=== PATIENT | male | born 1945 | race Caucasian/White ===

== ENCOUNTER 2021-02-10 22:48 | Emergency (ER) | payer OTHER ==
[~2021-02-10] VITALS: Ht 177.8 cm; Wt 104.3 kg
[2021-02-10] MEDS ORDERED: MECLIZINE HCL 25 MG TABLET PO ONE (23:15)
[2021-02-10] MEDS ORDERED: MECLIZINE HCL 25 MG TABLET ONE (23:36)
[2021-02-11 00:11] LABS: BASOPHILS # (AUTO) 0.1 K/uL (0.0-8.0); BASOPHILS % (AUTO) 0.5 % (0.0-2.0); EOSINOPHILS # (AUTO) 0.1 K/uL (0.0-0.7); EOSINOPHILS % (AUTO) 0.8 % (0.0-7.0); HEMATOCRIT 37.2 % (36.7-47.1); HEMOGLOBIN 12.8 g/dL (12.5-16.3); LYMPHOCYTES # (AUTO) 1.9 K/uL (20.0-40.0); LYMPHOCYTES % (AUTO) 14.2 % (20.5-51.5); MEAN CORPUSCULAR HEMOGLOBIN 30.3 uug (23.8-33.4); MEAN CORPUSCULAR HGB CONC 35 g/dL (32.5-36.3); MEAN CORPUSCULAR VOLUME 87.9 fL (73.0-96.2); MONOCYTES # (AUTO) 1.2 K/uL (2.0-10.0); MONOCYTES % (AUTO) 8.7 % (0.0-11.0); NEUTROPHILS # (AUTO) 10.2 K/uL (1.8-8.9); NEUTROPHILS % (AUTO) 75.8 % (38.5-71.5); PLATELET COUNT (AUTO) 217 K/uL (152-348); RED BLOOD CELL COUNT(AUTO) 4.23 MIL/uL (4.06-5.63); WHITE BLOOD COUNT (AUTO) 13.5 K/uL (3.6-10.2)
[2021-02-11 00:18] LABS: CREATININE 1.2 mg/dL (0.6-1.3); POTASSIUM 4.6 mmol/L (3.5-5.1)
[2021-02-11 00:24] LABS: BILIRUBIN,DIRECT 0.1 mg/dL (0.0-0.2); BILIRUBIN,TOTAL 0.7 mg/dL (0.2-1.0); TOTAL PROTEIN, SERUM 6.7 g/dL (6.4-8.2)
[2021-02-11 00:41] LABS: *BILIRUBIN,URIN 1+ (NEGATIVE); *BLOOD, URINE NEGATIVE (NEGATIVE); *CLARITY,URINE CLEAR (CLEAR); *COLOR,URINE YELLOW (YELLOW); *KETONES,URINE 1+ (NEGATIVE); LEUKOCYTE ESTERASE ,URINE NEGATIVE (NEGATIVE); NITRITE, URINE NEGATIVE (NEGATIVE); UGLUCOSE NEGATIVE (NEGATIVE)
--- NOTE | 2021-02-11 00:48 | NUR ---
Spoke with Nazario from [facility], awaiting call back.
--- NOTE | 2021-02-11 00:53 | NUR ---
Dr. Mclain ([place]) called back, speaking with Dr. Teran.
[2021-02-11 00:55] LABS: BACTERIA,URINE NONE SEEN /HPF (NONE SEEN); RBC,URINE 0-3 /HPF (0-3); SQUAMOUS EPITHELIAL CELL,UR NONE SEEN /HPF (NONE SEEN); WBC,URINE 0-3 /HPF (0-3)
--- NOTE | 2021-02-11 01:34 | NUR ---
Toby from [facility] called back with transfer info. Patient will be going to [facility]. Accepting MD is Dr Coulter. Call for report is . [facility] ALS ETA is [phone].
--- NOTE | 2021-02-11 01:54 | NUR ---
Report called to VINICIO Young at [facility].
--- NOTE | 2021-02-11 02:55 | NUR ---
[facility] unit # [id number] for patient pick up attendant. Patient is awake, alert/oriented, in no acute distress.
== END 2021-02-11 02:59 | disposition short-term general hospital (02) ==
LOC: ER 22:50
DX: R55 Syncope and collapse (principal); Z20.822 Contact with and (suspected) exposure to COVID-19; E78.5 Hyperlipidemia, unspecified; E11.9 Type 2 diabetes mellitus without complications; R00.1 Bradycardia, unspecified; I44.4 Left anterior fascicular block
CPT/HCPCS: 36415; 70030-TC; 70450; 85025; 85730; 93005; A4663; J8597

== ENCOUNTER 2021-04-11 17:49 | Emergency (ER) | payer OTHER ==
[~2021-04-11] VITALS: Ht 177.8 cm; Wt 104.3 kg
[2021-04-11] MEDS ORDERED: CHOL500050 PO (18:00)
[2021-04-11] MEDS ORDERED: CITA40TA11 PO (18:00)
[2021-04-11] MEDS ORDERED: ATOR40TA PO (18:00)
[2021-04-11] MEDS ORDERED: ASPI81TA31 PO (18:00)
[2021-04-11] MEDS ORDERED: MULT-213 PO (18:00)
[2021-04-11] MEDS ORDERED: METF-442 PO (18:00)
[2021-04-11] MEDS ORDERED: ACET-2154 PO (18:00)
[2021-04-11 18:18] LABS: MEAN CORPUSCULAR HEMOGLOBIN 30.3 uug (23.8-33.4); MEAN CORPUSCULAR VOLUME 90.2 fL (73.0-96.2); PLATELET COUNT (AUTO) 222 K/uL (152-348)
[2021-04-11 18:21] LABS: CREATININE 1.2 mg/dL (0.6-1.3); POTASSIUM 4.3 mmol/L (3.5-5.1)
[2021-04-11 18:46] LABS: BILIRUBIN,DIRECT 0.2 mg/dL (0.0-0.2); BILIRUBIN,TOTAL 0.6 mg/dL (0.2-1.0); TOTAL PROTEIN, SERUM 7.1 g/dL (6.4-8.2)
--- NOTE | 2021-04-11 18:50 | NUR ---
[facility], requested information provied
[2021-04-11] MEDS ORDERED: ASPIRIN 81 MG TAB.CHEW PO ONE (19:00)
--- NOTE | 2021-04-11 19:12 | NUR ---
Received report from Angelina MOONEY.
[2021-04-11] MEDS ORDERED: ASPIRIN 81 MG TAB.CHEW ONE (19:20)
--- NOTE | 2021-04-11 20:50 | NUR ---
Called [employer] at [phone] and arranged transportation, spoke with Scott and provided an ETA of 1 hour to 1 and a half.
--- NOTE | 2021-04-11 22:35 | NUR ---
Called [place] to f/u with taxi, stated that there is "no available taxi's at the moment and the next taxi is who ever is available".
--- NOTE | 2021-04-11 23:10 | NUR ---
Patient does not wish to proceed with medical care recommended by Dr. Ya. Patient given information related to possible complications, up to and including , which could occur as a result of leaving the hospital at this time. Patient verbalizes understanding of risks involved due to leaving against medical advice. Patient has signed AMA form. Vitals stable, steady gait. Denies any n/v/d or any dizziness. Denies any pain/discomfort. A/O x4.
[2021-04-11 23:17] VITALS: BP 121/84
== END 2021-04-11 23:00 | disposition left against medical advice (07) ==
LOC: ER 17:51
DX: R27.0 Ataxia, unspecified (principal); E11.9 Type 2 diabetes mellitus without complications; Z20.822 Contact with and (suspected) exposure to COVID-19; Z79.84 Long term (current) use of oral hypoglycemic drugs; Z79.82 Long term (current) use of aspirin; E78.5 Hyperlipidemia, unspecified; Z79.899 Other long term (current) drug therapy; Z53.29 Procedure and treatment not carried out because of patient's decision for other reasons
CPT/HCPCS: 36415; 70030-TC; 70450; 71045; 85025; 93005; A4663

== ENCOUNTER 2023-04-12 17:08 | Emergency (ER) | payer OTHER ==
[~2023-04-12] VITALS: Ht 177.8 cm; Wt 84.8 kg
[~2023-04-12 17:08] MED LIST: ACET-2154 PO; ASPI81TA31 PO; ATOR40TA PO; CHOL500050 PO; CITA40TA11 PO; METF-442 PO; MULT-213 PO
--- NOTE | 2023-04-12 17:15 | NUR ---
Dr Claudio at the bedside for MSE.
[2023-04-12] MEDS ORDERED: IV NORMAL SALINE 1000 ML BAG IV ONE (17:30)
--- NOTE | 2023-04-12 17:35 | NUR ---
Lab was drawn, xray in progress.
[2023-04-12 17:38] LABS: HEMATOCRIT 35.9 % (36.7-47.1); MEAN CORPUSCULAR VOLUME 82.4 fL (73.0-96.2); PLATELET COUNT (AUTO) 296 K/uL (152-348)
[2023-04-12] MEDS ORDERED: SENN8.6T19 PO (17:39)
[2023-04-12] MEDS ORDERED: VITAMIN D3 PO (17:39)
[2023-04-12] MEDS ORDERED: MELA5TAB20 PO (17:39)
[2023-04-12] MEDS ORDERED: GABA-532 PO (17:39)
[2023-04-12] MEDS ORDERED: GABA600T12 PO (17:39)
[2023-04-12] MEDS ORDERED: TAMS-3 PO (17:39)
[2023-04-12] MEDS ORDERED: MORPHINE SULFATE 4 MG/1 ML DISP.SYRIN ONE (17:51)
[2023-04-12 17:53] LABS: CARBON DIOXIDE 24 mmol/L (21-32); CHLORIDE 105 mmol/L (98-107); CREATININE 0.8 mg/dL (0.6-1.3); POTASSIUM 4.3 mmol/L (3.5-5.1); UREA NITROGEN, BLOOD 11 mg/dL (7-18)
[2023-04-12] MEDS ORDERED: MORPHINE SULFATE 4 MG/1 ML DISP.SYRIN IV ONE (18:00)
[2023-04-12 18:02] LABS: ALANINE AMINOTRANSFERASE 14 U/L (16-63); ALKALINE PHOSPHATASE 198 U/L (50-136); ASPARTATE AMINOTRANSFERASE < 5 U/L (15-37); BILIRUBIN,DIRECT 0.1 mg/dL (0.0-0.2); BILIRUBIN,TOTAL 0.5 mg/dL (0.2-1.0); TOTAL PROTEIN, SERUM 6.8 g/dL (6.4-8.2)
[2023-04-12] MEDS ORDERED: diphenhydrAMINE 50 MG/1 ML VIAL ONE (18:09)
[2023-04-12] MEDS ORDERED: diphenhydrAMINE 50 MG/1 ML VIAL IV ONE (18:15)
--- NOTE | 2023-04-12 18:22 | NUR ---
Pt refused Ct scan, and started yelling at staff. Dr Claudio made aware.
--- NOTE | 2023-04-12 18:54 | NUR ---
Dr Quiros spoke to [facility].
--- NOTE | 2023-04-12 19:06 | NUR ---
Received handoff report from VINICIO Cabrera for continuity of care. [facility] however the patient is still pending transfer information to determine where he will be going.
--- NOTE | 2023-04-12 20:09 | NUR ---
Patient in bed at lowest position, sr upx2, call light within reach. Fall and safety precautions implemented per protocol. Will continue to monitor.
[2023-04-12 22:30] VITALS: O2SAT 98
--- NOTE | 2023-04-12 22:37 | NUR ---
[facility] with transfer info: Accepted by Dr. Boris Rivera @ [facility] Room 5104-A/TELE Phone number for report [phone] ETA for pickup - ALS [phone]
--- NOTE | 2023-04-12 22:44 | NUR ---
Report given to VNIICIO Dong at [facility].
--- NOTE | 2023-04-12 23:18 | NUR ---
[facility] unit 144 here for patient transport to [facility]. VSS.
== END 2023-04-12 23:20 | disposition short-term general hospital (02) ==
LOC: ER 17:11
DX: S52.501A Unspecified fracture of the lower end of right radius, initial encounter for closed fracture (principal); R55 Syncope and collapse; E78.5 Hyperlipidemia, unspecified; E11.9 Type 2 diabetes mellitus without complications; Z79.82 Long term (current) use of aspirin; Z79.899 Other long term (current) drug therapy; W18.39XA Other fall on same level, initial encounter; Y93.89 Activity, other specified; Y92.89 Other specified places as the place of occurrence of the external cause; Y99.8 Other external cause status
CPT/HCPCS: 29125; 71045; 73110; 80048; 80076; 84484; 85025; 93005; 96361; 96374; 96375; 99285; J1200; J2270; J7040; A4663